=== PATIENT | female | born 1960 | race Caucasian/White ===

== ENCOUNTER → 2024-09-30 12:04 | Outpatient (REF) | payer OTHER, SELFPAY | LOC: HWWDC 12:04 | PROVIDERS: ATTENDING PHYSICIAN Internal Medicine | DX: Z12.31 Encounter for screening mammogram for malignant neoplasm of breast (principal); Z87.891 Personal history of nicotine dependence; Z72.0 Tobacco use; D58.2 Other hemoglobinopathies; R73.02 Impaired glucose tolerance (oral) | CPT/HCPCS: 71271; 77063; 77067 ==

== ENCOUNTER → 2024-10-21 11:51 | Outpatient (REF) | payer OTHER, SELFPAY | LOC: PET 11:51 | PROVIDERS: ATTENDING PHYSICIAN Internal Medicine | DX: J98.4 Other disorders of lung (principal) | CPT/HCPCS: 78815; A9552 ==

== ENCOUNTER 2025-11-04 15:00 | Observation (INO) | payer MEDICARE, SELFPAY ==
[2025-11-04] VITALS (9 sets, daily range): BP systolic 116–163; BP diastolic 67–91; BMI 19.3; BMI 18.9
[2025-11-04 12:16] LABS: Hematocrit 48.1 % (37.0-47.0); Hemoglobin 16.0 g/dL (12.0-16.0); Mean Corp Hgb Conc. 33.3 g/dL (33.0-37.0); Mean Corpuscular Volume 97.4 fL (81.0-99.0); Nucleated Red Blood Cells % 0 %; Platelet Count 235 10^3/uL (130-400); Red Cell Dist. Width 12.1 % (11.5-14.5)
--- NOTE | 2025-11-04 12:19 | ED.GENMED ---
History of Present Illness
General
Chief Complaint: Headache
Source: patient
Exam Limitations: none
Time Seen by Provider: 11/04/25 11:56
Nursing documentation reviewed up to this point in time: agreed with
History of Present Illness
History of Present Illness:
65-year-old female with history as noted presents to the emergency department for evaluation of headache. Patient reports symptoms started rather abruptly that she said she woke up in her normal state of health, took a shower and had a light
breakfast and shortly thereafter she started to feel headache and 'woozy, but not dizzy.' She says she sat down to check her blood pressure and it was severely elevated which is very unusual for her. She says she started the panic and
hyperventilate and ultimately called EMS to bring her to the hospital. She still reports headache essentially at the crown of her head she describes a sharp pain 'like a broken bone.' She denies any trauma or injury. She does have some chronic
mild neck pain but no acute change. She denies any nausea or vomiting. She denies any change in vision or speech. Denies focal weakness or numbness. She denies similar symptoms in the past.
Past History
Past History
ED Past Medical History: Other (Diverticulitis) and Other (Perforated diverticulitis status post colostomy status post reversal status post hysterectomy)
ED Past Surgical History: Other (Hysterectomy, colostomy that was reversed)
Social History
Tobacco: Smoker
Alcohol: Occasional
Employment: Employed
Family History
Family History: Negative Diabetes
Review of Systems
Review of Systems
All Other Systems: ROS reviewed and negative except as documented in HPI and ROS
Constitutional: Denies fever or chills
Respiratory: Denies trouble breathing
Cardiac: Denies chest pain
ABD/GI: Denies abdominal pain, nausea or vomiting
: Denies flank pain
Musculoskeletal: Denies neck pain or back pain
Neurological: Reports dizzy ('woozy') and headache; Denies weakness or numbness
Phy Exam
Physical Exam
Physical Exam:
General: Awake, alert; no acute distress
Head: Normocephalic, atraumatic, no focal tenderness or palpable fracture
Eyes: Conjunctiva normal, pupils equal round and reactive to light bilaterally
Throat: Airway intact, handling secretions
Neck: Trachea midline, supple without meningismus
Lungs: Breathing comfortably not in distress, lungs clear bilaterally
Heart: Regular rate and rhythm, no murmurs, gallops, or rubs
Abd: Soft, non distended, nontender
Neuro: Cranial nerves intact, speech fluid without dysarthria, motor and sensory intact in all extremities
Skin: Grossly intact
Extremities: No edema, warm well-perfused
Scores
Heart Failure Risk
Heart Failure Risk Score: Not Applicable
Heart Score for Chest Pain Patients
STEMI patient?: Not applicable
Withdrawal Assessment of Alcohol
Withdrawal Assessment Completed?: Not applicable
Course
Orders/Labs/Results
Orders:
Orders
11/04/25 12:05
Electrocardiogram (*1) Urgent
Reason for Study: Palpitations
EKG- Treatment ONCE
11/04/25 12:06
Complete Blood Count/With Diff Urgent
Comprehensive Metabolic Panel Urgent
11/04/25 12:17
CT Head & Neck Angio W/wo IV Urgent
Comment:
Reason For Exam: acute onset severe headache
Acetaminophen [Tylenol] 650 mg PO NOW STA
11/04/25 12:43
COVID-19 Antigen Urgent
Source: Nasal Swab
Influenza A+B Rapid Molecular Urgent
ZIYAD Source: Nasal Swab
Specimen Description:
Abnormal Lab Results
11/04/25
12:06
Hct 48.1 H %
(37.0-47.0)
MCH 32.4 H pg
(27.0-31.0)
Absolute Lymphs (auto) 0.9 L 10^3/uL
(1.2-3.4)
Neutrophils % 76.4 H %
(42.2-75.2)
Lymphocytes % 13.7 L %
(20.5-51.1)
11/04/25 12:06
11/04/25 12:06
Vital Signs
Initial and Last Documented VS:
Initial Vital Signs
Temp Pulse Resp BP Pulse Ox
36.8 C 86 18 150/90 96
11/04/25 10:50 11/04/25 10:50 11/04/25 10:50 11/04/25 10:50 11/04/25 10:50
Last Documented Vital Signs
Temp Pulse Resp BP Pulse Ox
36.8 C 63 18 134/74 94
11/04/25 10:50 11/04/25 14:30 11/04/25 14:30 11/04/25 14:00 11/04/25 14:30
MDM/Problems Addressed
Differential Diagnosis Includes:
Tension headache, migraine headache, brain bleed/subarachnoid hemorrhage; nothing to suggest meningitis at this point
MDM/Problems Addressed:
65-year-old female presents for evaluation of headache associated with feeling of 'woozy' and subsequent anxiety/palpitations and shortness of breath that seems to have improved. She is hypertensive but otherwise normal vitals. Physical exam as
above. Plan to check basic labs, viral swabs. Concern would be for subarachnoid hemorrhage with report of sudden onset of symptoms�will check CTA head and neck. Will treat symptomatically. Reassess after the above.
Labs reviewed: CBC and CMP no clinically significant abnormalities. Viral swabs negative. Awaiting report on CTA head and neck, no acute abnormality noted on my initial review. Clinical reassessment patient feeling much better. Her blood
pressure is normalized. If CT is normal can likely be discharged, follow-up with PCP on outpatient basis. She feels comfortable this plan.
Radiology report reviewed: No hemorrhage, note made of severely attenuated right cervical vertebral artery with suggested occlusion at the level of C2. Could be developmental although cannot rule out dissection. Patient clinically appears quite
well her symptoms have improved she now reports minimal headache, mlid wooziness. My impression is that this is likely developmental and not clinically significant but will discuss with neurology given her symptomatology earlier.
Discussed with neurology�recommended admission for MRI to better evaluate. Discussed with hospitalist for admission.
Acute Exacerbation and/or Progression of Chronic Illness:
Acutely hypertensive resolved without invention continue to monitor but no emergent antihypertensives indicated at this point
Acute Exacerbation and/or Progression of Chronic Illness: HTN
*Radiology
Radiology exam reviewed: radiology read reviewed
*Pulse Oximetry
SaO2: 96
Oxygen Mode of Delivery: Room air
Patient hypoxic: no (96%)
*EKG
Interpreted by ED Provider?: Yes
Heart Rate: 68
Rate: normal
Rhythm: sinus
[place]: normal axis
Interval: normal interval
QRS Pattern: normal QRS
Ischemia: no ischemia
*Critical Care Note
Total Time (30-74mins, 75-104mins- exclusive of procedures): Not Applicable
Data Reviewed
Source: patient and records
Patient Management
Discussion with other providers: Hospitalist (Discussed with hospitalist) and Tractor Expert (Discussed with neurology, discussed with vascular surgeon)
Escalation/DeEscalation of care consider admission/obs:
Admission indicated
ED Attending Note
-
Portions of this chart may have been created with voice recognition software.� Occasional wrong word or��sound alike� substitutions may have occurred due to the inherent limitations of voice recognition software.
Discharge Plan
Departure
Patient Disposition: Admit
Date of Disposition: 11/04/25
Time of Disposition: 14:37
Admit to doctor: Mimi
Presentation/result/management discussed w/ accepting MD/DO: Hospitalist
Patient with high blood pressure during this ER visit?: Yes
Discharge Problem:
Headache, Hypertension, Dizziness
Prescriptions:
No Action
calcium carbonate 500 MG tablet,chewable
500 mg PO DAILY
jjxxilyp-[id number]-dcsi-[id number]-vit K-lut [Centrum Silver Women] 1 EACH tablet
1 ea PO DAILY
Referrals:
UNKNOWN - PT DOES,NOT KNOW [Family Provider]
Interventions
Interventions:
*General Assessment Last Done: 11/04/25 10:50
*Neglect/Abuse Screening Last Done: 11/04/25 10:50
[facility] Risk Assessment Tool Last Done: 11/04/25 12:01
ED- Neurological Assessment Last Done: 11/04/25 12:09
Discharge Date and Time
Print Language: ROMANSH
[2025-11-04 12:37] LABS: ALT (SGPT) 12 U/L (0-35); AST (SGOT) 20 U/L (14-36); Albumin 4.4 g/dl (3.5-5.0); Alkaline Phosphatase 73 U/L (38-126); Blood Urea Nitrogen 13 mg/dl (7-17); Calcium 9.3 mg/dl (8.4-10.2); Carbon Dioxide 29 mmol/L (22-30); Chloride 102 mmol/L (98-107); Estimated Creatinine Clearance 75 ml/min; Glucose 99 mg/dl (70-99); Potassium 4.5 mmol/L (3.5-5.1); Sodium 137 mmol/L (135-145); Total Protein 7.2 g/dl (6.3-8.2); eGFR > 60.00
[2025-11-04] MEDS: TYLENOL 650 MG PO ×2 (12:44→20:35)
[2025-11-04 13:22] LABS: COVID-19 Antigen Negative (Negative)
--- NOTE | 2025-11-04 14:54 | HPS.HSE ---
Family Physician
-
Family Physician: NOT KNOW UNKNOWN - PT DOES
Chief Complaint
-
headache
History of Present Illness
65-year-old female past medical history of perforated diverticulitis status post colostomy status post reversal, presenting for headache. She woke up in her normal state of health took a shower and had a light breakfast and then shortly thereafter
she has started having headache and wooziness/dizziness. She sat down and checked her blood pressure and it was severely elevated which is unusual for her. She started to panic and hyperventilating called EMS. She continues to have headache at
the crown of her head described as a sharp pain like a broken bone but has improved after Tylenol. She denies any trauma or injury. She has chronic mild neck pain but no acute change. Denies any nausea or vomiting. Denies any change in vision or
speech. Denies any focal weakness or numbness or tingling. She denies any history of headache or migraine.
She denies any cough, fever or any illness.
She smokes 1 cigarette a day at times. Denies alcohol or drugs.
No family history of strokes or migraines.
Medical History
Past Medical History
Past Medical History: Reports Other (perforated diverticulitis status post colostomy status post reversal,)
Past Surgical History: Reports None
Social History
Tobacco: Smoker
Alcohol: None
Drug: None
Family History
Family History: Not pertinent
Allergies / Home Medications
Allergies reflects when Allergies were last updated in [facility].
Home Medications with original date entered in [facility]
Allergy/Medication List:
Allergies
Allergy/AdvReac Type Severity Reaction Status Date / Time
Cephalosporins Allergy Severe Unknown Verified 12/08/20 14:16
influenza virus vaccine, Allergy Anaphylaxis Verified 12/08/20 14:31
specific
morphine Allergy Anaphylaxis Verified 12/08/20 14:16
Penicillins AdvReac Severe Hives Verified 12/08/20 14:16
Home Medications
nrizsdkh-hgpi-dmpm 8 mg-folic 400 mcg-K 50 mcg-lutein 300 mcg tablet (Centrum Silver Women) 1 tab PO QPM 11/04/25
Review of Systems
-
History Source: Patient
A 12 point ROS was completed and negative except as noted: Yes
Constitutional: Reports No Symptoms
EENT: Reports No Symptoms
Respiratory: Reports No Symptoms
Cardiac: Reports No Symptoms
Abdomen/GI: Reports No Symptoms
: Reports No Symptoms
Musculoskeletal: Reports No Symptoms
Skin: Reports No Symptoms
Neurological: Reports No Symptoms
Endocrine: Reports No Symptoms
Hematologic/Lymphatic: Reports No Symptoms
Psych: Reports No Symptoms
Physical Exam
Vital Signs
Vital Signs
Temp Pulse Resp BP Pulse Ox
98.3 F 63 18 134/74 94
11/04/25 10:50 11/04/25 14:30 11/04/25 14:30 11/04/25 14:00 11/04/25 14:30
Physical Exam
General: Well Developed, Well Nourished and No Apparent Distress
HEENT: NormoCephalic, Moist mucous membranes and Atraumatic
Respiratory: Clear
Cardiac: S1/S2 and Regular Rhythm; No Murmur or Rub
GI: Soft, Non Tender, Non Distended and Normal Bowel Sounds; No Organomegaly
Rectal: Deferred by Provider
Musculoskeletal: No Clubbing, No Cyanosis and No Edema
Skin: No Rash
Neuro: Nonfocal/grossly intact
Laboratory Results
-
11/04/25 12:06
11/04/25 12:06
Laboratory Results
Total Bilirubin 0.7 mg/dl (0.2-1.3) 11/04/25 12:06
AST 20 U/L (14-36) 11/04/25 12:06
ALT 12 U/L (0-35) 11/04/25 12:06
Alkaline Phosphatase 73 U/L (38-126) 11/04/25 12:06
Data Reviewed
-
Lab Data: Labs Reviewed by me
Old Records: Reviewed
Impression/Plan
-
IMPRESSION:
PLAN:
# Headache rule out vertebral artery dissection
- CTA shows severely attenuated right cervical vertebral artery suggested occlusion at C2 which may be developmental abnorality although possibility of age-indeterminate dissection cannot be excluded
- Check MRA head and neck
- Finding was discussed with vascular who did not feel there was dissection
-Tylenol for headache
- Neurology consulted
History of perforated diverticulitis status post colostomy status post reversal
Osteoporosis
Full code
DVT prophylaxis�SCDs
Regular diet
--- NOTE | 2025-11-04 16:06 | EDCM ---
Reviewed chart and met with pt bedside in ED. Lives alone in [address], [address].
Independent in ADLs, personal care and ambulation at baseline. No assistive device, no DME.
MONSALVE reviewed and signed, pt declined copy.
Confirms prescription coverage.
No hx HH or SNF
PCP: Ewa Bond
Pharmacy: [facility]
Anticipate discharge home, CM will continue to follow for all discharge planning needs.
--- NOTE | 2025-11-04 18:03 | PTCARENOTE ---
Received pt from ED into room 405-1. Pt ambulatory to bed with no assistance. AAOx3. VSS. Skin intact. Pt reports 2-3/10 headache, states it is tolerable. Oriented patient to room, educated about call xiao, pt states understanding. Pt now sitting
comfortably in bed, call xiao within reach, eating dinner.
[2025-11-05 03:20] VITALS: BP 125/79
[2025-11-05 07:30] VITALS: BP 133/77
[2025-11-05 07:34] LABS: Hematocrit 41.9 % (37.0-47.0); Hemoglobin 14.4 g/dL (12.0-16.0); Mean Corp Hgb Conc. 34.4 g/dL (33.0-37.0); Mean Corpuscular Volume 93.7 fL (81.0-99.0); Nucleated Red Blood Cells % 0 %; Platelet Count 204 10^3/uL (130-400); Red Cell Dist. Width 12.2 % (11.5-14.5)
--- NOTE | 2025-11-05 08:33 | W.PN.HOSP.TC ---
Addendum entered and electronically signed by Niranjan Ya MD 11/05/25 13:42:
I saw and evaluated the patient. I reviewed the resident�s note and agree with findings and plan as documented in the resident�s note.
1. Reported hypertensive urgency -patient reported systolic blood pressure of 200+ at home. Denies of having any formal diagnosis of hypertension. How his blood pressure reported in ER was in range of 150-160. Patient prescribed losartan 25 mg
daily to prevent any further hypertension episodes. Will require follow-up with primary care physician. After blood pressure check showing patient blood pressure soft. Will discuss if patient would prefer with as needed hydralazine versus
switching newly prescribed losartan to Norvasc small dose to avoid any hypotension
2. Headache -suspecting from uncontrolled hypertension. Improved currently and can use Tylenol. Patient will require follow-up with neurology in office if suspected to have any headache syndromes
3. 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 Neurology evaluated and no further intervention required. Suspecting possible incidental finding as patient does not report of having any history of vertigo/ataxia or any
posterior circulation stroke/TIA
Discharge home
Original Note:
Today's Communication/Plan
-
losartan 25mg daily
atorvastatin 20mg daily
dc home
fu with pcp
Assessment / Plan
Assessment / Plan
65-year-old female past medical history of perforated diverticulitis status post colostomy status post reversal, presented with c/o headache and elevated BP.
# Headache
DD: Secondary to hypertension, migraine, tension headache, less likely intracranial hemorrhage ; unlikely meningitis
Lab work on arrival unremarkable
- CTA shows severely attenuated right cervical vertebral artery suggested occlusion at C2 which may be developmental abnorality although possibility of age-indeterminate dissection cannot be excluded
- MRI neck: The right vertebral artery is diminutive and predominantly nonopacified with reconstitution of the V4 segment, likely secondary to retrograde flow. Left dominant vertebral artery.
- Finding were discussed with vascular by the ER physician who did not feel there was dissection
- Tylenol for headache
- Neurology input appreciated
- Will start losartan 25 mg 1 tablet; encouraged to keep a daily blood pressure log and follow-up outpatient with the family doctor
# Hyperlipidemia
- LDL of 125
- ASCVD 5.6%
-start atorvastatin 20mg daily
#History of perforated diverticulitis status post colostomy status post reversal
#Osteoporosis
Full code
DVT prophylaxis�SCDs
Regular diet
Anticipated Discharge: Today
Subjective/Interval History
-
Date of Service: November 05, 2025
Afebrile. Blood pressure in 130s/70s. Intermittent headache around the vertex. Overall better than yesterday
Objective Data
-
Labs:
Laboratory Results
11/05/25 11/05/25
07:09 08:08
WBC 3.4 L
Hgb 14.4
Hct 41.9
Plt Count 204
Sodium Cancelled Pending
Potassium Cancelled Pending
Chloride Cancelled Pending
Carbon Dioxide Cancelled Pending
BUN Cancelled Pending
Creatinine Cancelled Pending
Glucose Cancelled Pending
Calcium Cancelled Pending
Total Bilirubin Cancelled Pending
AST Cancelled Pending
ALT Cancelled Pending
Alkaline Phosphatase Cancelled Pending
Vital Signs:
Vital Signs
Temp Pulse Resp BP Pulse Ox
97.7 F 70 16 133/77 93
11/05/25 07:30 11/05/25 07:30 11/05/25 07:30 11/05/25 07:30 11/05/25 07:30
I&O
11/04/25 11/05/25 11/06/25
06:59 06:59 06:59
Intake Total 960 / 960
Balance 960 / 960
Review of Systems
-
History Source: Patient
Respiratory: Reports No Symptoms
Cardiac: Reports No Symptoms
Abdomen/GI: Reports No Symptoms
Genitourinary: Reports No Symptoms
Neuro: Reports Headache; Denies Dizzy, Weakness, Numbness, Ataxia, Tremors or Lightheadedness
Physical Exam
-
General: Well Developed, Well Nourished and No Apparent Distress
HEENT: Normocephalic and Atraumatic
Respiratory: Clear to Auscultation and Non Labored Respirations
Cardiac: Regular Rhythm and S1/S2
GI: Soft, Nontender and Nondistended
Skin: Warm
Neuro: Awake, Alert, Oriented and Nonfocal/Grossly Intact
Psych: Calm
Data Reviewed
-
CT Scan: Report Reviewed by me, Discussed with Physician and Discussed with Patient
Labs: Labs Reviewed by me, Discussed with Physician and Discussed with Patient
--- NOTE | 2025-11-05 09:33 | CON.NEURO ---
Addendum entered and electronically signed by Eliazar Woods MD 11/05/25 23:33:
NOTE: MRI brain was not done during this admission.
MRA of neck showed that the right vertebral artery is diminutive and the left verterbral artery is the dominant one. Basilar artery is patent.
MRA brain was unremarkable.
Addendum entered and electronically signed by Eliazar Woods MD 11/05/25 23:25:
The patient was seen and examined with the Nurse Practitioner Katheryn Borrero, and I agree with her assessment and plan. Given below is my addendum.
The patient is a 65 years old female, who presented to the [facility] for evaluation of headache and dizziness. Her blood pressure was significantly elevated on presentation, but today she appears to be in no acute distress and denies a headache.
The Neurologic Examination is unremarkable.
The patient's headache was likely 2/2 uncontrolled hypertension. She was not on any antihypertensive medication at home. Brain MRI did not show infarct or hemorrhage.
Follow up with Neurology clinic.
Original Note:
Neuro Assessment/Plan
Assessment
Patient is a 65-year-old female with history as noted presents to [facility] on 11/04/2025 for evaluation of headache.
Head/neck CTA 11/04/2025: No acute intracranial hemorrhage. Minor chronic microvascular white matter ischemic change. The cervical carotid arteries are patent. Mild right and minimal left calcified plaque. No hemodynamically significant stenosis,
occlusion, or dissection. Severely attenuated right cervical vertebral artery, with suggested occlusion at the level of C2. This may be developmental in nature, though the possibility of age-indeterminate dissection cannot be excluded. Probable
reflux enhancement of a small right intradural vertebral artery segment. No lower [place] region aneurysm or stenosis. No cerebral artery aneurysm, significant plaque, stenosis, thrombus, or occlusion.
Head/neck MRA 11/05/2025: This examination demonstrates no focal hemodynamically significant stenosis, aneurysm or occlusion. The right vertebral artery is diminutive and predominantly nonopacified with reconstitution of the V4 segment, likely
secondary to retrograde flow. Left dominant vertebral artery.
Plan
Impression: abrupt onset of headache and dizziness, differentials include hypertensive encephalopathy as BP significantly elevated during event vs TIA/CVA vs migraine
-brain MRI did not show infarct or hemorrhage
-BP goal is normotension
-considering no infarct and patient was significantly hypertensive, do not see a need for dapt here
-if LDL >70 consider starting atorvastatin
All questions encouraged and answered, plan of care discussed with Dr. Woods and patient.
Consultation
Order
Date of Consultation: 11/05/25
Requesting Provider: hospitalist/ Dr. Mary Le
Reason for Consult: dizziness and headache
Subjective/Objective
Subjective Data
Date of Service: November 05, 2025
Patient is a 65-year-old female with history as noted presents to [facility] on 11/04/2025 for evaluation of headache. Patient reports symptoms started rather abruptly that she said she woke up in her normal state of health, took a shower and had a light
breakfast and shortly thereafter around 8 am she started to feel headache and 'woozy, but not dizzy.' She says she sat down to check her blood pressure and it was severely elevated over 200s which is very unusual for her. She says she started the
panic and hyperventilate and ultimately called EMS to bring her to the hospital. She said in the ambulance her blood pressure was int he 180s. She still reports headache essentially at the crown of her head she describes a sharp pain 'like a broken
bone.' She denies any trauma or injury. She does have some chronic mild neck pain but no acute change. She denies any nausea or vomiting. She denies any change in vision or speech. Denies focal weakness or numbness. She denies similar symptoms
in the past. In the ED her head CT showed no acute intracranial abnormalities. CTA shows severely attenuated right cervical vertebral artery suggested occlusion at C2 which may be developmental abnormality although possibility of age-indeterminate
dissection cannot be excluded. Finding discussed with vascular who did not feel that this was dissection. Currently patient is back to baseline, denies headache or dizziness. MRI/MRA head and neck negative for infarct, hemorrhage or LVO. Currently
NIHSS 0.
Objective Data
Vital Signs
Temp Pulse Resp BP Pulse Ox
97.7 F 70 16 133/77 93
11/05/25 07:30 11/05/25 07:30 11/05/25 07:30 11/05/25 07:30 11/05/25 09:23
Lab Results
11/05/25 07:09
Sodium Cancelled 11/05/25 07:09
Potassium Cancelled 11/05/25 07:09
BUN Cancelled 11/05/25 07:09
Glucose Cancelled 11/05/25 07:09
Calcium Cancelled 11/05/25 07:09
Patient Allergies
Cephalosporins Allergy (Severe, Verified 12/08/20 14:16)
Unknown
influenza virus vaccine, specific Allergy (Verified 12/08/20 14:31)
Anaphylaxis
morphine Allergy (Verified 12/08/20 14:16)
Anaphylaxis
Penicillins Adverse Reaction (Severe, Verified 12/08/20 14:16)
Hives
CVA Assessment
NIH Stroke Score
Level of Consciousness: 0 - Alert
LOC Questions: 0-Answers both correctly
LOC Commands: 0-Performs both correctly
Best Horizontal Gaze: 0-Normal
Visual Merchant: 0=Normal, no visual loss
Facial Palsy: 0=Normal, symmetrical
Motor - Right Arm: 0=No drift 10 seconds
Motor - Left Arm: 0=No drift 10 seconds
Motor - Right Le-No drift 5 seconds
Motor - Left Le-No drift 5 seconds
Limb Ataxia: 0-Absent
Sensation: 0-Normal
Best Language: 0-No aphasia
Dysarthria: 0-Normal
Extinction and Inattention: 0-No abnormality
NIH Total Score:: 0
Tenecteplase Contraindications
IAT Contraindications: NIHSS < 6
Modified Ponce Score (MRS)
-
Modified Alyssa Scale (mRS): No symptoms
Score: 0
Physical Exam
-
General: Comfortable and Appears Stated Age
HEENT: Normocephalic and Atraumatic
Neck: Full Range of Motion
Respiratory: No Dyspnea
Cardiac: No JVD
GI: Non-distended
Skin: Unremarkable
Extremities: No Clubbing, No Cyanosis and No Edema
Psych: Unremarkable
Extended Neurological Exam
Mood & Affect: Mood Unremarkable
Attention Span & Concentration: Awake, Alert, Interactive and No Difficulty with 2 Step Request
Memory: Unremarkable
Involuntary Movement: None
Speech: Quality Unremarkable, Quantity Unremarkable and Rate of Production Unremarkable
Cranial Nerve II: Left Eye: Visual Merchant Intact
Cranial Nerve II: Right Eye: Visual Merchant Intact
Cranial Nerves III, IV, : Extraocular Movement: Extraocular Movement Full in all Directions
Cranial Nerve VII: Facial Symmetry: Normal Facial Symmetry
Cranial Nerve VIII: Hearing: Unremarkable Hearing to Normal Conversational Volume
Muscle Strength, Overall: Full Throughout
Pronator Drift: No Drift in Upper Extremities and No Drift in Lower Extremities
Coordination: Hdmxdl-lfvy-nmydcb Testing Unremarkable
Data Reviewed
-
CT-A: Report Reviewed and Image Reviewed
CT Head: Report Reviewed and Image Reviewed
MRI Head: Report Reviewed and Image Reviewed
MRA Head: Report Reviewed and Image Reviewed
MRA Neck: Report Reviewed and Image Reviewed
Medical Test Reports: Report Reviewed
Labs: Report Reviewed
Reviewed with: Physician and Patient
Old Records: Summarized
Medications
-
Active Medications
Generic Name Dose Route Start Last Admin
Trade Name Freq PRN Reason Stop Dose Admin
Acetaminophen 650 mg 11/04/25 18:00 11/04/25 20:35
Acetaminophen 325 Mg Tablet PO 12/02/25 17:59 650 mg
Q4HPRN PRN Administration
mild pain/HART/temp> 100.4F
Home Medications
�Medication �Instructions �Recorded
zhysekef-rges-acte 8 mg-folic 400 1 tab PO QPM 11/04/25
mcg-K 50 mcg-lutein 300 mcg tablet
(Centrum Silver Women)
[2025-11-05 11:30] VITALS: BP 103/73
[2025-11-05 11:36] LABS: ALT (SGPT) 11 U/L (0-35); AST (SGOT) 18 U/L (14-36); Albumin 4.0 g/dl (3.5-5.0); Alkaline Phosphatase 65 U/L (38-126); Blood Urea Nitrogen 18 mg/dl (7-17); Calcium 9.1 mg/dl (8.4-10.2); Carbon Dioxide 26 mmol/L (22-30); Chloride 106 mmol/L (98-107); Estimated Creatinine Clearance 63 ml/min; Glucose 117 mg/dl (70-99); HDL Cholesterol 69 mg/dl; LDL Cholesterol, Calculated 125 mg/dl; Potassium 4.0 mmol/L (3.5-5.1); Sodium 137 mmol/L (135-145); Total Protein 6.7 g/dl (6.3-8.2); Very Low Density Lipoprotein 14 mg/dl (0-30); eGFR > 60.00
[2025-11-05 12:10] LABS: Glycohemoglobin (HgbA1c) 5.4 % (4.0-5.9)
--- NOTE | 2025-11-05 13:37 | W.DCSUMMARY ---
Discharge Summary
Discharge Data
Date of Admission: 11/04/25
Date of Discharge: 11/05/25
-
Pending Results: No
Hospital Course
Discharging Physician : Edson Rosen MD ; Niranjan Ya MD
Disposition : Home
Primary care physician : Unknown
Principal Discharge diagnosis : Headache likely secondary to hypertensio(possible hypertensive urgency), hyperlipidemia
Chronic Discharge diagnosis : Diverticulitis
Hospital Course : 65-year-old female past medical history of perforated diverticulitis status post colostomy status post reversal, presented with complaints of headache(in the crown) and elevated blood pressure at home. Reported that she was very
concerned after she saw her blood pressure was in the 200s and she called the EMS and presented to the hospital. She continued to have headache at the crown of her head described as a sharp pain like a broken bone but it improved after Tylenol.
She denied any trauma or injury. She has chronic mild neck pain but no acute change. Denied any nausea or vomiting. Denied any change in vision or speech. Denied any focal weakness or numbness or tingling. She denied any history of headache or
migraine.
Head and neck CTA was obtained which showed no acute intracranial hemorrhage. There was a concern of possible indeterminate dissection(detailed results as below). Neurology was consulted and MRI of head and neck was performed with results as
below. Case was briefly discussed with the vascular by the ER physician who did not feel strongly about the dissection. Patient's headache improved in the hospital. She did not require any additional doses of Tylenol.
Routine blood work showed her hemoglobin stable at 14.4. Metabolic panel with no concerning abnormalities. Lipid panel with elevated LDL of 125, total cholesterol of 208, HDL of 69. Her ASCVD score was greater than 5% and she was recommended
moderate intensity statin. A prescription of atorvastatin 20 mg was sent to the pharmacy after discussion with the neurology team.
There was a discussion regarding the use of blood pressure medication however on the day of discharge her blood pressure was 106/73. She was not very interested to consider blood pressure medication. A prescription of hydralazine was sent to the
pharmacy and she was instructed to use it as needed if her blood pressure is more than 140/90. She was advised to check her daily blood pressure. Advised to keep a log. Advised to follow-up outpatient with the family doctor.
Important imaging findings : CT Head & Neck Angio W/wo IV
IMPRESSION:
No acute intracranial hemorrhage. Minor chronic microvascular white matter ischemic change.
The cervical carotid arteries are patent. Mild right and minimal left calcified plaque. No hemodynamically significant stenosis, occlusion, or dissection.
Severely attenuated right cervical vertebral artery, with suggested occlusion at the level of C2. This may be developmental in nature, though the possibility of age-indeterminate dissection cannot be excluded. Probable reflux enhancement of a small
right intradural vertebral artery segment.
No [place] of [place] region aneurysm or stenosis.
No cerebral artery aneurysm, significant plaque, stenosis, thrombus, or occlusion.
MA [place] Wo:
This examination demonstrates no focal hemodynamically significant stenosis, aneurysm or occlusion.
MA Neck With Contrast
IMPRESSION:
The right vertebral artery is diminutive and predominantly nonopacified with reconstitution of the V4 segment, likely secondary to retrograde flow. Left dominant vertebral artery.
Procedure findings :
EKG:
NORMAL SINUS RHYTHM
NORMAL ECG
Discharge Plan
-
Patient Disposition: Home (Routine Discharge)
Discharge Diagnosis/Procedures: Headache likely secondary to hypertension, hyperlipidemia
Condition: Good
Diet: No restrictions
Activity: No restrictions
Driving Restrictions: As prior to admission
Bathing Restrictions: None
Instructions: Checking your blood pressure at home
Referrals:
UNKNOWN - PT DOES,NOT KNOW [Family Provider]
Additional Discharge Medication Instructions: Take hydralazine 25 mg 1 tablet by mouth daily as needed if your blood pressure is more than 140/90
Take atorvastatin 20 mg 1 tablet by mouth daily
Please check your blood pressure daily and keep a blood pressure log.
You may use Tylenol for the headache (maximum 4000mg in 24 hours)
Please follow up with pcp in 1 week for posthospital visit evaluation and to review the blood pressure log.
Prescriptions:
New
atorvastatin [Lipitor] 20 mg tablet
20 mg PO DAILY Qty: 30 0RF
hydralazine 25 mg tablet
25 mg PO DIRECTED Qty: 30 0RF
Rx Instructions:
use if bp >140/90
Continued
Centrum Silver Women 8 mg iron-400 mcg-50 mcg Tablet
1 tab PO QPM
Discharge Orders:
Discharge Patient (As Directed); Ordered 11/05/25
Ordered By: Edson Rosen
Discharge Date and Time
Print Language: GUYANESE
--- NOTE | 2025-11-05 13:45 | CM ---
MD entered order for discharge.
Spoke with patient in room she said she was ready for discharge.
She said her son Frantz will be driving her home.Offered Vn she declined need.
PLAN Home no needs
== END 2025-11-05 14:35 | disposition home or self-care (01) ==
LOC: 4 EAST ACU 15:00
PROVIDERS: Emergency Medicine; ADMITTING PHYSICIAN Hospitalist; ATTENDING PHYSICIAN Hospitalist; CONSULT PHYSICIAN Psychiatry & Neurology Neurology; EMERGENCY PHYSICIAN Emergency Medicine
DX: I16.0 Hypertensive urgency (principal); F17.210 Nicotine dependence, cigarettes, uncomplicated; Z11.52 Encounter for screening for COVID-19; M81.0 Age-related osteoporosis without current pathological fracture; E78.5 Hyperlipidemia, unspecified; K57.32 Diverticulitis of large intestine without perforation or abscess without bleeding; Z93.3 Colostomy status
CPT/HCPCS: 70496; 70498; 70544; 70548; 80053; 80061; 83036; 85025; 87502; 87811; 93005; 99285; A9585; G0378; Q9967